=== PATIENT | male | born 1945 | race Native Hawaiian/Other Pacific Islander ===

== ENCOUNTER 2018-09-19 10:11 | Inpatient (IN) | payer BC ==
[~2018-09-19] VITALS: Ht 172.7 cm; Wt 105.0 kg
[2018-09-19] VITALS (12 sets, daily range): BP systolic 102–173; BP diastolic 56–93; TEMP 97.8–98.6; Ht 172.7 cm; Wt 105.0 kg
[~2018-09-19 10:11] MED LIST: ALLO300T23 PO; AMIT25TA22 PO; ASA LOW DOSE81 MG PO; CARV3.12 PO; CLON0.5T36 PO; CLOP75TA2 PO; COZAAR25 MG PO; ENAL10TA PO; HYDR5TAB9 PO; NITROSTAT0.4 MG SL; OMEP40CA PO; ROSU10TA PO; TAMS0.4C PO; ZOFRAN8 MG PO
[2018-09-19 11:11] LABS: PLATELET COUNT 163 K/uL (142-355)
[2018-09-19 11:19] LABS: POTASSIUM 3.7 mmol/L (3.6-5.2); SODIUM 148 mmol/L (136-145)
--- NOTE | 2018-09-19 16:05 | NUR ---
PT ARRIVED VIA W/C. FAMILY AT
[2018-09-19] MEDS ORDERED: DOXAZOSIN4 M1 PO (18:31)
[2018-09-19] MEDS ORDERED: GABA300C2 PO (18:32)
[2018-09-19] MEDS ORDERED: FURO20TA67 PO (18:33)
[2018-09-19] MEDS ORDERED: MYCOPHENOLAT500 MG PO (18:35)
[2018-09-19] MEDS ORDERED: TIZANIDINE HYDRO4 MG PO (18:35)
[2018-09-19] MEDS ORDERED: [UNRECOGNIZED DRUG - REMARK] PO (18:36)
[2018-09-19] MEDS ORDERED: CARAFATE1 GM PO (18:37)
[2018-09-19] MEDS ORDERED: MELATONIN1 M1 PO (18:38)
[2018-09-19] MEDS ORDERED: NASAL SPRAY 120.05 % NAS (18:40)
[2018-09-19] MEDS ORDERED: FLUTICASON50 MCG/ACT NAS (18:41)
[2018-09-19] MEDS ORDERED: VITAMIN C TR1000 MG PO (18:45)
[2018-09-19] MEDS ORDERED: [UNRECOGNIZED DRUG - OTHER] PO (18:46)
[2018-09-19] MEDS ORDERED: [UNRECOGNIZED DRUG - OTHER] PO (18:48)
[2018-09-19] MEDS ORDERED: DIPHENATOL2.5 MG PO (18:57)
[2018-09-20] VITALS (9 sets, daily range): BP systolic 117–141; BP diastolic 42–75; TEMP 98.2–99.1
--- NOTE | 2018-09-20 04:09 | NUR ---
Patient is presently on a CLD. Admitted with syncopal episode, dehydration, intractabe n/v and pain. 68" and IBW= 154+/-10% and is at 219.2 and is 142% BW and BMI at 33.29 and is CLass I Obesity. Kcal for IBW 2100, Protein 70-80 grams and Fluids for weight 3000+++ d/t dx. Recommendations: 1- Advance JORGE. Suggest NCS high fiber, needs to decrease weight for health. 2- Increase Fluids as tolerated.
[2018-09-20 05:32] LABS: PLATELET COUNT 130 K/uL (142-355)
[2018-09-20 05:33] LABS: POTASSIUM 3.8 mmol/L (3.6-5.2)
[2018-09-21 00:23] VITALS: BP 118/58; TEMP 98
--- NOTE | 2018-09-21 02:24 | NUR ---
09/21/18 027 RESTING WITH EYES CLOSED RESP EVEN NONLABORED VISITOR PRESENT IN ROOM.CC
[2018-09-21 03:58] VITALS: BP 118/53; TEMP 97.5
[2018-09-21 05:56] LABS: PLATELET COUNT 131 K/uL (142-355)
[2018-09-21 06:12] LABS: POTASSIUM 4.5 mmol/L (3.6-5.2)
[2018-09-21 08:18] VITALS: BP 143/59; TEMP 98.1
[2018-09-21 12:12] VITALS: BP 144/59; TEMP 98
[2018-09-21] MEDS ORDERED: TRAMADOL HYDROC50 MG PO (14:29)
[2018-09-21 16:05] VITALS: BP 151/65; TEMP 98
[2018-09-21 20:00] VITALS: BP 148/57; TEMP 98.3
--- NOTE | 2018-09-21 20:36 | NUR ---
DRESSING CHANGED TO LEFT ARM. OPEN SKIN TEAR WAS COVERED WITH NEOSPORIN. SKIN TEAR WAS THEN COVERED WITH TELFA DRESSING AND WRAPPED IN MADHAV WRAP.
[2018-09-22] VITALS: BP 121/52; TEMP 98.9
[2018-09-22 04:00] VITALS: BP 118/70; TEMP 98.4
[2018-09-22 05:55] LABS: PLATELET COUNT 151 K/uL (142-355)
[2018-09-22 06:15] LABS: POTASSIUM 4.3 mmol/L (3.6-5.2)
[2018-09-22 08:25] VITALS: BP 123/54; TEMP 98.2
--- NOTE | 2018-09-22 10:28 | NUR ---
0920 NEW ORDERS GIVEN PER JENAE TO DC DISCHARGE ON PT AT THIS TIME. PT AND FAMILY AWARE
[2018-09-22 12:06] VITALS: BP 144/70; TEMP 98.2
--- NOTE | 2018-09-22 14:40 | NUR ---
1435 PT LEFT WITH FAMILY VIA WC. NO ACUTE DISTRESS NOTED
== END 2018-09-22 14:25 | disposition home or self-care (01) | DRG 605 ==
LOC: ED 10:11 → MED/SURG 15:35
PROVIDERS: ADMIT Family Medicine
DX: S00.83XA Contusion of other part of head, initial encounter (principal); R55 Syncope and collapse; S40.022A Contusion of left upper arm, initial encounter; R51 Headache; M54.5 Low back pain; E86.0 Dehydration; K52.89 Other specified noninfective gastroenteritis and colitis; E86.1 Hypovolemia; I10 Essential (primary) hypertension; M10.9 Gout, unspecified; E78.49 Other hyperlipidemia; I25.2 Old myocardial infarction; I25.10 Atherosclerotic heart disease of native coronary artery without angina pectoris; W18.39XA Other fall on same level, initial encounter; Y92.89 Other specified places as the place of occurrence of the external cause
CPT/HCPCS: 36415; 80053; 81000; 82550; 84484; 85027; 87502; 90471; 90715; 93005; 93306; 96365; 96366; 96372; 96374; 96375; 99284; J1650; J2175; J2405; J2550; J3490

== ENCOUNTER 2019-04-25 09:28 | Outpatient (CLI) | payer BC ==
[~2019-04-25 09:28] MED LIST changes: +CARAFATE1 GM PO; +DIPHENATOL2.5 MG PO; +DOXAZOSIN4 M1 PO; +FLUTICASON50 MCG/ACT NAS; +FURO20TA67 PO; +GABA300C2 PO; +MELATONIN1 M1 PO; +MYCOPHENOLAT500 MG PO; +NASAL SPRAY 120.05 % NAS; +TIZANIDINE HYDRO4 MG PO; +TRAMADOL HYDROC50 MG PO; +VITAMIN C TR1000 MG PO; +[UNRECOGNIZED DRUG - OTHER] PO; +[UNRECOGNIZED DRUG - OTHER] PO; +[UNRECOGNIZED DRUG - REMARK] PO
== END 2019-04-25 22:51 | disposition home or self-care (01) ==
LOC: RAD 09:28
DX: M25.561 Pain in right knee (principal)

== ENCOUNTER 2020-09-10 08:22 | Outpatient (CLI) | payer BC ==
[2020-09-10 08:48] LABS: PLATELET COUNT 174 K/uL (142-355)
== END 2020-09-10 23:14 | disposition home or self-care (01) ==
LOC: LABW 08:22
PROVIDERS: ATTEND Internal Medicine Nephrology
DX: D64.89 Other specified anemias (principal); E78.00 Pure hypercholesterolemia, unspecified; E87.5 Hyperkalemia; I73.89 Other specified peripheral vascular diseases; M12.9 Arthropathy, unspecified; N03.8 Chronic nephritic syndrome with other morphologic changes; N18.30 Chronic kidney disease, stage 3 unspecified; M10.9 Gout, unspecified; R60.0 Localized edema; R79.89 Other specified abnormal findings of blood chemistry
CPT/HCPCS: 36415; 80053; 82570; 82728; 83540; 83550; 84155; 85027

== ENCOUNTER 2020-12-11 08:21 | Outpatient (CLI) | payer BC ==
[2020-12-11 08:48] LABS: PLATELET COUNT 126 K/uL (142-355)
[2020-12-11 08:56] LABS: POTASSIUM 5.9 mmol/L (3.6-5.2)
== END 2020-12-11 21:15 | disposition home or self-care (01) ==
LOC: LAB 08:21
PROVIDERS: ATTEND Internal Medicine Nephrology
DX: D64.89 Other specified anemias (principal); E78.00 Pure hypercholesterolemia, unspecified; E87.5 Hyperkalemia; I73.9 Peripheral vascular disease, unspecified; K26.3 Acute duodenal ulcer without hemorrhage or perforation; M12.89 Other specific arthropathies, not elsewhere classified, multiple sites; N05.2 Unspecified nephritic syndrome with diffuse membranous glomerulonephritis; N18.30 Chronic kidney disease, stage 3 unspecified; M10.9 Gout, unspecified; R60.0 Localized edema; R79.89 Other specified abnormal findings of blood chemistry
CPT/HCPCS: 36415; 80053; 82310; 82570; 83970; 84100; 84155; 85027

== ENCOUNTER 2020-12-30 12:34 | Outpatient (CLI) | payer BC | END 2020-12-30 23:42 | disposition home or self-care (01) | LOC: RAD 12:34 | PROVIDERS: ATTEND Physician Assistant | DX: M25.552 Pain in left hip (principal) ==

== ENCOUNTER 2021-02-05 08:15 | Outpatient (CLI) | payer BC ==
[2021-02-05 09:03] LABS: POTASSIUM 4.2 mmol/L (3.6-5.2)
[2021-02-05 09:13] LABS: PLATELET COUNT 125 K/uL (142-355)
== END 2021-02-05 22:17 | disposition home or self-care (01) ==
LOC: LABW 08:15
PROVIDERS: ATTEND Internal Medicine Nephrology
DX: D64.89 Other specified anemias (principal); E78.00 Pure hypercholesterolemia, unspecified; E87.5 Hyperkalemia; I73.9 Peripheral vascular disease, unspecified; M12.89 Other specific arthropathies, not elsewhere classified, multiple sites; M10.9 Gout, unspecified; N18.4 Chronic kidney disease, stage 4 (severe); R60.0 Localized edema; R79.89 Other specified abnormal findings of blood chemistry; I12.9 Hypertensive chronic kidney disease with stage 1 through stage 4 chronic kidney disease, or unspecified chronic kidney disease
CPT/HCPCS: 36415; 80053; 82306; 83970; 84100; 85027

== ENCOUNTER 2021-02-18 08:47 | Outpatient (CLI) | payer BC | END 2021-02-18 17:00 | disposition home or self-care (01) | LOC: LABW 08:47 | PROVIDERS: ATTEND Ophthalmology | DX: Z01.818 Encounter for other preprocedural examination (principal) | CPT/HCPCS: 36415; 84132 ==

== ENCOUNTER 2021-05-27 08:19 | Outpatient (CLI) | payer BC | END 2021-05-27 19:24 | disposition home or self-care (01) | LOC: LABW 08:19 | PROVIDERS: ATTEND Ophthalmology | DX: Z01.818 Encounter for other preprocedural examination (principal) | CPT/HCPCS: 36415; 84132 ==

== ENCOUNTER 2021-06-04 09:02 | Outpatient (CLI) | payer BC ==
[2021-06-04 10:06] LABS: PLATELET COUNT 180 K/uL (142-355)
[2021-06-04 10:26] LABS: POTASSIUM 4.3 mmol/L (3.6-5.2)
== END 2021-06-04 20:04 | disposition home or self-care (01) ==
LOC: LABW 09:02
PROVIDERS: ATTEND Internal Medicine Nephrology
DX: D64.89 Other specified anemias (principal); E78.00 Pure hypercholesterolemia, unspecified; E87.5 Hyperkalemia; I73.9 Peripheral vascular disease, unspecified; K26.3 Acute duodenal ulcer without hemorrhage or perforation; M12.88 Other specific arthropathies, not elsewhere classified, other specified site; M10.9 Gout, unspecified; N18.4 Chronic kidney disease, stage 4 (severe); R60.0 Localized edema; R79.89 Other specified abnormal findings of blood chemistry; R80.8 Other proteinuria; I12.9 Hypertensive chronic kidney disease with stage 1 through stage 4 chronic kidney disease, or unspecified chronic kidney disease
CPT/HCPCS: 36415; 80053; 80061; 81000; 82306; 82570; 84100; 84155; 84550; 85027

== ENCOUNTER 2021-09-12 11:30 | Outpatient (CLI) | payer BC, OTHER ==
[2021-09-12 12:11] LABS: PLATELET COUNT 101 K/uL (142-355)
== END 2021-09-12 20:32 | disposition home or self-care (01) ==
LOC: LABW 11:30
PROVIDERS: ATTEND Nurse Practitioner
DX: U07.1 COVID-19 (principal)
CPT/HCPCS: 36415; 80053; 85027; 85379; 86140

== ENCOUNTER 2022-01-04 23:01 | Observation (INO) | payer BC ==
[~2022-01-04] VITALS: Ht 172.7 cm; Wt 103.0 kg
[2022-01-04 23:09] VITALS: BP 158/56; TEMP 100.4
[2022-01-04 23:30] VITALS: BP 146/57
[2022-01-04 23:30] LABS: PLATELET COUNT 150 K/uL (142-355)
[2022-01-04 23:38] LABS: POTASSIUM 4.6 mmol/L (3.6-5.2)
[2022-01-04 23:41] LABS: PARTIAL THROMBOPLASTIN TIME 22.5 SECONDS (24.5-33.6)
[2022-01-05 00:10] VITALS: BP 152/68
[2022-01-05 00:30] VITALS: BP 149/68
[2022-01-05 01:30] VITALS: BP 144/63
[2022-01-05 02:00] VITALS: BP 150/69
--- NOTE | 2022-01-05 02:20 | NUR ---
PATIENT ADMITTED TO ROOM# 1108 VIA STRETCHER FROM THE ER. PATIENT IS ALERT AND ORIENTED AND IN NO ACUTE DISTRESS AT THIS TIME. PATIENT AND DAUGHTER ORIENTED TO ROOM AND CALL SYSTEM AND VERBALIZES UNDERSTANDING OF ALL INFORMATION GIVEN AND DENIES ANY QUESTIONS, COMPLAINTS OR REQUESTS AT THIS TIME. CALL LIGHT WITHIN REACH. WILL CONTINUE TO MONITOR.
[2022-01-05 05:39] VITALS: BP 134/50; TEMP 100.8; Ht 172.7 cm; Wt 103.0 kg
[2022-01-05 08:20] VITALS: BP 145/76; TEMP 98.8
--- NOTE | 2022-01-05 09:00 | NUR ---
ROUNDS WITH MD, REQUEST TO OBTAIN ORTHOSTATIC BP. SITTIN/58, STANDING 152/66. 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 HAS AN APPOINTMENT ON FEBRUARY 04. CLIENT'S DAUGHTER AT BEDSIDE. CLIENT AGREED WITH DR HEARN'S RECOMMENDATION FOR HOME HEALTH SERVICES. CLIENT AWAITING DISCHARGE. DAUGHTER AT BEDSIDE.
[2022-01-05] MEDS ORDERED: FINASTERIDE5 MG PO (09:54)
[2022-01-05] MEDS ORDERED: GRALISE600 MG PO (09:58)
--- NOTE | 2022-01-05 09:58 | NUR ---
ordered home health for [facility] and medication management. Banking Attorney spoke with patient and his daughter and they would like [facility], because they took care of his before she passed and they were real pleased. Banking Attorney spoke with Lolita at [facility] and referral was sent.
[2022-01-05] MEDS ORDERED: PRED20TA27 PO (10:02)
[2022-01-05] MEDS ORDERED: CARDURA8 MG PO (10:03)
[2022-01-05] MEDS ORDERED: MONTELUKAST SODI5 MG PO (10:07)
[2022-01-05] MEDS ORDERED: SPS15 GM/60 M PO (10:09)
[2022-01-05] MEDS ORDERED: SODI650T PO (10:11)
[2022-01-05] MEDS ORDERED: OLMESARTAN MEDO40 MG PO (10:14)
[2022-01-05] MEDS ORDERED: IPRATROPIUM/ NAS (10:20)
[2022-01-05] MEDS ORDERED: B-12 DOTS500 MCG PO (10:22)
[2022-01-05] MEDS ORDERED: LATANOPROST0.005 % OPTH (10:24)
[2022-01-05] MEDS ORDERED: MIRALAX17 GM/SCOO PO (10:25)
[2022-01-05] MEDS ORDERED: ROPINIROLE0.25 MG PO (10:25)
[2022-01-05] MEDS ORDERED: QUNOL COQ10/UB100 MG PO (10:26)
--- NOTE | 2022-01-05 11:35 | NUR ---
PROVIDED DISCHARGE INSTRUCTION TO PATIENT AND DAUGHTER, ALLOWED TIME FOR QUESTIONS. CLIENT VERBALIZED UNDERSTANDING. D/C IV ACCESS, PT TOLERATED PROCEDURE. RETURNED TELE UNIT. CLIENT DISCHARGED FROM UNIT VIA WHEELCHAIR.
== END 2022-01-05 11:35 | disposition home health service (06) ==
LOC: ED 23:01 → MED/SURG 01-05 01:00 → UNDODEPER 01-05 09:48 → MED/SURG 01-05 11:35
PROVIDERS: Hospitalist; ADMIT Internal Medicine; ATTEND Internal Medicine
DX: R53.1 Weakness (principal); E86.0 Dehydration; I25.10 Atherosclerotic heart disease of native coronary artery without angina pectoris; N40.0 Benign prostatic hyperplasia without lower urinary tract symptoms; I13.0 Hypertensive heart and chronic kidney disease with heart failure and stage 1 through stage 4 chronic kidney disease, or unspecified chronic kidney disease; N18.4 Chronic kidney disease, stage 4 (severe); I50.9 Heart failure, unspecified
CPT/HCPCS: 80053; 80320; 81000; 82550; 83605; 83690; 83880; 84484; 85027; 85610; 85730; 87040; 87635; 93005; 96360; 96361; 96365; 96367; 96372; 96375; 99220; 99284; G0378; J1650; J1956; J3370; J3490; U0003

== ENCOUNTER 2022-02-25 08:43 | Outpatient (CLI) | payer BC ==
[~2022-02-25 08:43] MED LIST changes: +B-12 DOTS500 MCG PO; +CARDURA8 MG PO; +FINASTERIDE5 MG PO; +GRALISE600 MG PO; +IPRATROPIUM/ NAS; +LATANOPROST0.005 % OPTH; +MIRALAX17 GM/SCOO PO; +MONTELUKAST SODI5 MG PO; +OLMESARTAN MEDO40 MG PO; +PRED20TA27 PO; +QUNOL COQ10/UB100 MG PO; +ROPINIROLE0.25 MG PO; +SODI650T PO; +SPS15 GM/60 M PO
== END 2022-02-25 18:56 | disposition home or self-care (01) ==
LOC: US 08:43
PROVIDERS: ATTEND Internal Medicine Gastroenterology
DX: R11.0 Nausea (principal); R10.13 Epigastric pain

== ENCOUNTER 2022-03-16 08:03 | Outpatient (CLI) | payer BC ==
[2022-03-16 08:26] LABS: PLATELET COUNT 172 K/uL (142-355)
[2022-03-16 08:33] LABS: POTASSIUM 4.2 mmol/L (3.6-5.2)
== END 2022-03-16 19:07 | disposition home or self-care (01) ==
LOC: LABW 08:03
PROVIDERS: ATTEND Internal Medicine Nephrology
DX: R94.4 Abnormal results of kidney function studies (principal)
CPT/HCPCS: 36415; 80069; 81002; 82570; 83970; 84156; 84165; 84166; 85027

== ENCOUNTER 2022-05-13 09:30 | Outpatient (CLI) | payer BC ==
[2022-05-13 09:57] LABS: PLATELET COUNT 157 K/uL (142-355)
[2022-05-13 10:12] LABS: POTASSIUM 4.2 mmol/L (3.6-5.2)
== END 2022-05-13 19:19 | disposition home or self-care (01) ==
LOC: LABW 09:30
PROVIDERS: ATTEND Internal Medicine Nephrology
DX: N18.32 Chronic kidney disease, stage 3b (principal)
CPT/HCPCS: 36415; 80069; 82570; 83970; 84156; 85027

== ENCOUNTER 2022-06-10 08:48 | Outpatient (CLI) | payer BC | END 2022-06-10 19:28 | disposition home or self-care (01) | LOC: LABW 08:48 | PROVIDERS: ATTEND Internal Medicine Nephrology | DX: N18.32 Chronic kidney disease, stage 3b (principal) | CPT/HCPCS: 36415; 80048 ==

== ENCOUNTER 2022-06-27 13:31 | Inpatient (IN) | payer BC ==
[~2022-06-27] VITALS: Ht 172.7 cm; Wt 102.6 kg
[2022-06-27 13:33] VITALS: BP 121/47; TEMP 102.3
[2022-06-27 14:53] LABS: PLATELET COUNT 122 K/uL (142-355)
[2022-06-27 15:06] LABS: POTASSIUM 4.8 mmol/L (3.6-5.2)
[2022-06-27 15:24] VITALS: BP 103/48; TEMP 99
[2022-06-27 16:23] VITALS: BP 111/51
[2022-06-27 18:42] VITALS: BP 123/55
[2022-06-27 20:34] VITALS: BP 141/59; TEMP 98.7; Ht 172.7 cm; Wt 102.6 kg
[2022-06-27] MEDS ORDERED: FURO40TA93 PO (21:27)
[2022-06-27] MEDS ORDERED: TIZANIDINE HYDRO4 M1 PO (21:29)
[2022-06-28] VITALS (7 sets, daily range): BP systolic 120–199; BP diastolic 59–88; TEMP 97.6–99.1
[2022-06-29] VITALS (8 sets, daily range): BP systolic 155–181; BP diastolic 64–78; TEMP 98.1–99.4
[2022-06-29 04:08] LABS: PLATELET COUNT 134 K/uL (142-355)
[2022-06-29] MEDS ORDERED: FERROUS SULF325 MG PO (17:18)
[2022-06-30] VITALS (7 sets, daily range): BP systolic 98–170; BP diastolic 70–86; TEMP 97.6–98.5
[2022-06-30 08:53] LABS: PLATELET COUNT 183 K/uL (142-355)
[2022-06-30 09:05] LABS: POTASSIUM 4.8 mmol/L (3.6-5.2)
== END 2022-06-30 09:37 | disposition home or self-care (01) | DRG 540 ==
LOC: ED 13:31 → MED/SURG 18:49 → ED 18:49 → MED/SURG 18:50
PROVIDERS: ADMIT Family Medicine; ATTEND Internal Medicine
PROC: 30233N1 Transfusion of Nonautologous Red Blood Cells into Peripheral Vein, Percutaneous Approach (ICD-10-PCS; principal; 2022-06-29)
PROC: 30233N1 Transfusion of Nonautologous Red Blood Cells into Peripheral Vein, Percutaneous Approach (ICD-10-PCS; 2022-06-30)
DX: M86.8X7 Other osteomyelitis, ankle and foot (principal); I13.0 Hypertensive heart and chronic kidney disease with heart failure and stage 1 through stage 4 chronic kidney disease, or unspecified chronic kidney disease; L03.115 Cellulitis of right lower limb; N18.4 Chronic kidney disease, stage 4 (severe); R50.9 Fever, unspecified; N40.0 Benign prostatic hyperplasia without lower urinary tract symptoms; K21.9 Gastro-esophageal reflux disease without esophagitis; M10.9 Gout, unspecified; R11.2 Nausea with vomiting, unspecified; I25.2 Old myocardial infarction; L97.519 Non-pressure chronic ulcer of other part of right foot with unspecified severity; I50.9 Heart failure, unspecified
CPT/HCPCS: 36415; 80048; 80053; 80202; 82150; 82550; 82607; 82728; 82746; 83540; 83605; 83690; 83735; 83880; 84484; 85027; 86850; 86900; 86901; 86922; 87040; 87502; 87635; 93005; 96360; 96365; 96366; 96367; 96374; 96375; 99284; J0360; J1940; J2543; J3370; J3490; P9016; U0003

== ENCOUNTER 2022-12-21 16:37 | Inpatient (IN) | payer BC ==
[~2022-12-21 16:37] MED LIST changes: +FERROUS SULF325 MG PO; +FURO40TA93 PO; +TIZANIDINE HYDRO4 M1 PO
[2022-12-29 13:11] LABS: PLATELET COUNT 257 K/uL (142-355)
[2022-12-29 13:53] LABS: POTASSIUM 4.2 mmol/L (3.6-5.2)
[2023-01-14 11:03] LABS: PLATELET COUNT 408 K/uL (142-355)
== END 2023-01-21 11:58 | disposition still patient (30) ==
LOC: PAVC 16:37
PROVIDERS: ADMIT Family Medicine; ATTEND Family Medicine
CPT/HCPCS: 36415; 80053; 82607; 82728; 83540; 83550; 83605; 83735; 83880; 84100; 84134; 84443; 84550; 85027; 86140; 87040; 87070; 87077; 87081; 87186; 87205; 87324; 87449

== ENCOUNTER 2022-12-28 14:31 | Emergency (ER) | payer BC ==
[~2022-12-28] VITALS: Ht 172.7 cm; Wt 90.7 kg
[2022-12-28 14:31] VITALS: BP 139/73; TEMP 99.2
[2022-12-28 15:54] LABS: POTASSIUM 4.6 mmol/L (3.6-5.2)
[2022-12-28 16:01] LABS: PLATELET COUNT 257 K/uL (142-355)
== END 2022-12-28 18:57 | disposition home or self-care (01) ==
LOC: ED 14:31
PROVIDERS: Emergency Medicine Emergency Medical Services
DX: R53.1 Weakness (principal); L02.214 Cutaneous abscess of groin
CPT/HCPCS: 36415; 80053; 81002; 83880; 84484; 85027; 93005; 96360; 99284

== ENCOUNTER 2023-02-15 04:47 | Outpatient (CLI) | payer BC ==
[2023-02-15 05:42] LABS: POTASSIUM 5.8 mmol/L (3.6-5.2)
== END 2023-02-15 19:18 | disposition home or self-care (01) ==
LOC: LAB 04:47
PROVIDERS: ATTEND Family Medicine
DX: R79.89 Other specified abnormal findings of blood chemistry (principal)
CPT/HCPCS: 36415; 80048

== ENCOUNTER 2023-02-21 21:41 | Emergency (ER) | payer BC ==
[~2023-02-21] VITALS: Ht 172.7 cm; Wt 80.3 kg
[2023-02-21 21:41] VITALS: TEMP 98
[2023-02-21 22:30] LABS: PLATELET COUNT 262 K/uL (142-355)
[2023-02-21 22:42] LABS: POTASSIUM 5.9 mmol/L (3.6-5.2)
[2023-02-22 01:29] VITALS: BP 137/75
[2023-02-22] MEDS ORDERED: FENOFIBRATE54 MG PO (21:59)
[2023-02-22] MEDS ORDERED: IRON325 MG PO (22:05)
[2023-02-22] MEDS ORDERED: MONT10TA PO (22:08)
[2023-02-22] MEDS ORDERED: [UNRECOGNIZED DRUG - CODE] PO (22:09)
[2023-02-22] MEDS ORDERED: MULTIVITAMIN1 TA1 PO (22:12)
[2023-02-22] MEDS ORDERED: PRED10TA27 PO (22:13)
[2023-02-22] MEDS ORDERED: SCOP1.5D TD (22:18)
[2023-02-22] MEDS ORDERED: ZINC220 MG PO (22:19)
[2023-02-22] MEDS ORDERED: CETI10TA PO (22:20)
[2023-02-22] MEDS ORDERED: CVS STOOL SOFT100 MG PO (22:21)
[2023-02-22] MEDS ORDERED: LANS30CA PO (22:22)
[2023-02-22] MEDS ORDERED: OXYC5TAB24 PO (22:25)
[2023-02-22] MEDS ORDERED: NASACORT A55 MCG/ACT NAS (22:27)
== END 2023-02-22 01:29 | disposition short-term general hospital (02) ==
LOC: ED 21:41
PROVIDERS: Family Medicine
DX: R41.0 Disorientation, unspecified (principal); Z71.1 Person with feared health complaint in whom no diagnosis is made
CPT/HCPCS: 36415; 80053; 81002; 85027; 99283

== ENCOUNTER 2023-02-22 09:25 | Observation (INO) | payer BC ==
[~2023-02-22] VITALS: Ht 170.2 cm; Wt 82.2 kg
[2023-02-22 18:34] VITALS: BP 155/59; TEMP 98.4; Ht 170.2 cm; Wt 82.2 kg
[2023-02-22 20:00] VITALS: BP 144/61; TEMP 99
[2023-02-22] MEDS ORDERED: FENOFIBRATE54 MG PO (21:59)
[2023-02-22] MEDS ORDERED: IRON325 MG PO (22:05)
[2023-02-22] MEDS ORDERED: MONT10TA PO (22:08)
[2023-02-22] MEDS ORDERED: [UNRECOGNIZED DRUG - CODE] PO (22:09)
[2023-02-22] MEDS ORDERED: MULTIVITAMIN1 TA1 PO (22:12)
[2023-02-22] MEDS ORDERED: PRED10TA27 PO (22:13)
[2023-02-22] MEDS ORDERED: SCOP1.5D TD (22:18)
[2023-02-22] MEDS ORDERED: ZINC220 MG PO (22:19)
[2023-02-22] MEDS ORDERED: CETI10TA PO (22:20)
[2023-02-22] MEDS ORDERED: CVS STOOL SOFT100 MG PO (22:21)
[2023-02-22] MEDS ORDERED: LANS30CA PO (22:22)
[2023-02-22] MEDS ORDERED: OXYC5TAB24 PO (22:25)
[2023-02-22] MEDS ORDERED: NASACORT A55 MCG/ACT NAS (22:27)
[2023-02-22 23:36] VITALS: BP 126/68; TEMP 98.5
[2023-02-23 03:59] VITALS: BP 165/56; TEMP 98.1
[2023-02-23 06:18] LABS: PLATELET COUNT 225 K/uL (142-355)
[2023-02-23 08:00] VITALS: BP 147/54; TEMP 98.2
== END 2023-02-23 11:16 ==
LOC: LAB 09:25 → MED/SURG 15:11
PROVIDERS: ADMIT Family Medicine; ATTEND Internal Medicine
DX: E87.5 Hyperkalemia (principal); N18.4 Chronic kidney disease, stage 4 (severe)
CPT/HCPCS: 36415; 80048; 82948; 83735; 84100; 85027; 93005; 96360; 99221; G0378

== ENCOUNTER 2023-02-25 07:45 | Outpatient (CLI) | payer BC ==
[~2023-02-25 07:45] MED LIST changes: +CETI10TA PO; +CVS STOOL SOFT100 MG PO; +FENOFIBRATE54 MG PO; +IRON325 MG PO; +LANS30CA PO; +MONT10TA PO; +MULTIVITAMIN1 TA1 PO; +NASACORT A55 MCG/ACT NAS; +OXYC5TAB24 PO; +PRED10TA27 PO; +SCOP1.5D TD; +ZINC220 MG PO; +[UNRECOGNIZED DRUG - CODE] PO
[2023-02-25 08:07] LABS: POTASSIUM 5.5 mmol/L (3.6-5.2)
== END 2023-02-25 22:10 | disposition home or self-care (01) ==
LOC: LAB 07:45
PROVIDERS: ATTEND Family Medicine
DX: R79.89 Other specified abnormal findings of blood chemistry (principal)
CPT/HCPCS: 36415; 80048

== ENCOUNTER 2023-03-05 04:57 | Outpatient (CLI) | payer BC ==
[2023-03-05 06:17] LABS: POTASSIUM 4.8 mmol/L (3.6-5.2)
== END 2023-03-05 18:56 | disposition home or self-care (01) ==
LOC: LAB 04:57
PROVIDERS: ATTEND Family Medicine
DX: E87.5 Hyperkalemia (principal)
CPT/HCPCS: 36415; 80053

== ENCOUNTER 2023-03-17 09:20 | Outpatient (CLI) | payer BC ==
[~2023-03-17] VITALS: Ht 172.7 cm; Wt 86.6 kg
[~2023-03-17 09:20] MED LIST changes: +ALUM-67 PO; -ASA LOW DOSE81 MG PO; +ASPIRIN LOW81 MG PO; +BANOPHEN25 M1 PO; +BIOFREEZE ROLL ON TOP; +GERI-TUSSI100 MG/51 PO; +JEVITY 1.5 PEG; +LOKELMA10 GM PO; +MILK OF MA400 MG/5 M PO; +ONDA4TAB3 PO; +OXYGEN; +TYLENOL325 MG PO
[2023-03-17 09:25] VITALS: BP 154/58; TEMP 98.5
[2023-03-17 20:58] VITALS: BP 189/73; TEMP 98.7
[2023-03-17 21:35] VITALS: BP 183/74; TEMP 98.4
== END 2023-03-17 21:01 | disposition home or self-care (01) ==
LOC: INF 09:20
PROVIDERS: ATTEND Family Medicine
DX: N39.0 Urinary tract infection, site not specified (principal)
CPT/HCPCS: 96365; J2185

== ENCOUNTER 2023-03-18 08:42 | Outpatient (CLI) | payer BC ==
[~2023-03-18] VITALS: Ht 165.1 cm; Wt 81.6 kg
[2023-03-18 08:45] VITALS: BP 141/63; TEMP 98.8
[2023-03-18 22:10] VITALS: BP 182/77; TEMP 99.2
[2023-03-18 22:35] VITALS: BP 188/85; TEMP 99.3
== END 2023-03-18 23:00 | disposition home or self-care (01) ==
LOC: INF 08:42
PROVIDERS: ATTEND Family Medicine
DX: N39.0 Urinary tract infection, site not specified (principal)
CPT/HCPCS: 96365; J2185

== ENCOUNTER 2023-03-19 10:00 | Outpatient (CLI) | payer BC ==
[~2023-03-19] VITALS: Ht 165.1 cm; Wt 63.5 kg
[2023-03-19 10:00] VITALS: BP 145/63; TEMP 99.3
== END 2023-03-19 23:18 | disposition home or self-care (01) ==
LOC: INF 10:00
PROVIDERS: ATTEND Family Medicine
DX: N39.0 Urinary tract infection, site not specified (principal)
CPT/HCPCS: 96365; J2185

== ENCOUNTER 2023-03-20 10:08 | Outpatient (CLI) | payer BC ==
[~2023-03-20] VITALS: Ht 30.5 cm; Wt 0.5 kg
[2023-03-20 10:35] VITALS: BP 153/81; TEMP 98.6
== END 2023-03-20 23:11 | disposition home or self-care (01) ==
LOC: INF 10:08
PROVIDERS: ATTEND Family Medicine
DX: N39.0 Urinary tract infection, site not specified (principal)
CPT/HCPCS: 96365; J2185

== ENCOUNTER 2023-03-24 07:28 | Outpatient (CLI) | payer BC ==
[2023-03-24 08:05] LABS: POTASSIUM 4.6 mmol/L (3.6-5.2)
[2023-03-24 11:53] LABS: PLATELET COUNT 344 K/uL (142-355)
== END 2023-03-24 19:03 | disposition home or self-care (01) ==
LOC: LAB 07:28
PROVIDERS: ATTEND Family Medicine
DX: I12.9 Hypertensive chronic kidney disease with stage 1 through stage 4 chronic kidney disease, or unspecified chronic kidney disease (principal); N18.4 Chronic kidney disease, stage 4 (severe)
CPT/HCPCS: 80053; 82570; 84100; 84156; 85027

== ENCOUNTER 2023-04-07 21:48 | Inpatient (IN) | payer BC ==
[~2023-04-07] VITALS: Ht 172.7 cm; Wt 82.8 kg
[2023-04-07 22:20] LABS: PLATELET COUNT 221 K/uL (142-355)
[2023-04-07 22:27] VITALS: BP 107/65; TEMP 97.7
[2023-04-07 22:33] LABS: POTASSIUM 5.7 mmol/L (3.6-5.2)
[2023-04-07 23:00] VITALS: BP 108/63; BP 157/61
[2023-04-08] VITALS (8 sets, daily range): BP systolic 109–179; BP diastolic 64–96; TEMP 97.3–98.4; Ht 172.7 cm; Wt 82.8 kg
[2023-04-08] MEDS ORDERED: MIRALAX17 GM PO (08:15)
[2023-04-09] VITALS: BP 180/61; TEMP 97.5
[2023-04-09 04:00] VITALS: BP 149/86; TEMP 97.6
[2023-04-09 06:36] LABS: PLATELET COUNT 207 K/uL (142-355)
[2023-04-09 06:46] LABS: POTASSIUM 5.3 mmol/L (3.6-5.2)
[2023-04-09 08:00] VITALS: BP 186/75; TEMP 98.5
[2023-04-09 12:00] VITALS: BP 190/76; TEMP 98.4
[2023-04-09 16:00] VITALS: BP 145/71; TEMP 96.8
[2023-04-09 19:50] VITALS: BP 183/84; TEMP 98
[2023-04-10] VITALS: BP 136/64; BP 166/82; TEMP 98; TEMP 98.7
[2023-04-10 04:00] VITALS: BP 148/95; TEMP 98
[2023-04-10 04:58] LABS: PLATELET COUNT 200 K/uL (142-355)
[2023-04-10 05:13] LABS: POTASSIUM 5.3 mmol/L (3.6-5.2)
[2023-04-10 08:00] VITALS: BP 154/96; TEMP 98.2
[2023-04-10 12:22] VITALS: BP 148/60; TEMP 97.6
[2023-04-10 16:00] VITALS: BP 168/71; TEMP 98.7
[2023-04-10 20:00] VITALS: BP 133/62; TEMP 98.6
[2023-04-11] VITALS: BP 130/64; TEMP 98.7
[2023-04-11 04:00] VITALS: BP 132/68; TEMP 99.1
[2023-04-11 05:30] LABS: PLATELET COUNT 183 K/uL (142-355)
[2023-04-11 05:35] LABS: POTASSIUM 5.1 mmol/L (3.6-5.2)
[2023-04-11 08:00] VITALS: BP 184/81; TEMP 98
[2023-04-11 12:00] VITALS: BP 164/71; TEMP 98.7
[2023-04-11 19:55] VITALS: BP 163/54; TEMP 98.1
[2023-04-11 23:31] VITALS: BP 169/55; TEMP 99.6
[2023-04-12 04:00] VITALS: BP 175/58; TEMP 98.9
[2023-04-12 04:18] LABS: PLATELET COUNT 194 K/uL (142-355)
[2023-04-12 04:24] LABS: POTASSIUM 4.9 mmol/L (3.6-5.2)
[2023-04-12 08:00] VITALS: BP 188/74; TEMP 98
== END 2023-04-12 10:17 | DRG 689 ==
LOC: ED 21:48 → MED/SURG 04-08 03:10
PROVIDERS: Family Medicine; ADMIT Physician Assistant; ATTEND Internal Medicine Endocrinology, Diabetes & Metabolism
DX: N30.00 Acute cystitis without hematuria (principal); G92.8 Other toxic encephalopathy; N18.4 Chronic kidney disease, stage 4 (severe); B96.4 Proteus (mirabilis) (morganii) as the cause of diseases classified elsewhere; R41.82 Altered mental status, unspecified; N40.0 Benign prostatic hyperplasia without lower urinary tract symptoms; D63.1 Anemia in chronic kidney disease; G89.4 Chronic pain syndrome; K21.9 Gastro-esophageal reflux disease without esophagitis
CPT/HCPCS: 80048; 80053; 81000; 82948; 85027; 87077; 87086; 87088; 87186; 96361; 96365; 96367; 96375; 99221; 99284; G0378; J1335; J2060; J2543

== ENCOUNTER 2023-04-19 05:20 | Outpatient (CLI) | payer BC ==
[~2023-04-19 05:20] MED LIST changes: +MIRALAX17 GM PO
[2023-04-19 05:39] LABS: PLATELET COUNT 278 K/uL (142-355)
[2023-04-19 06:00] LABS: POTASSIUM 6.1 mmol/L (3.6-5.2)
== END 2023-04-19 23:58 | disposition home or self-care (01) ==
LOC: LAB 05:20
PROVIDERS: ATTEND Family Medicine
DX: I25.10 Atherosclerotic heart disease of native coronary artery without angina pectoris (principal); R79.89 Other specified abnormal findings of blood chemistry; Z79.899 Other long term (current) drug therapy; I10 Essential (primary) hypertension
CPT/HCPCS: 36415; 80053; 83605; 83735; 83880; 84100; 84443; 84550; 85027; 86140

== ENCOUNTER 2023-04-29 07:49 | Outpatient (CLI) | payer BC | END 2023-04-29 19:24 | disposition home or self-care (01) | LOC: LAB 07:49 | PROVIDERS: ATTEND Family Medicine | DX: D64.89 Other specified anemias (principal); N17.8 Other acute kidney failure; A41.01 Sepsis due to Methicillin susceptible Staphylococcus aureus; R33.8 Other retention of urine | CPT/HCPCS: 80048 ==

== ENCOUNTER 2023-05-05 13:58 | Outpatient (CLI) | payer BC ==
[2023-05-05 14:18] LABS: POTASSIUM 4.5 mmol/L (3.6-5.2)
== END 2023-05-05 19:19 | disposition home or self-care (01) ==
LOC: LAB 13:58
PROVIDERS: ATTEND Family Medicine
DX: Z93.1 Gastrostomy status (principal)
CPT/HCPCS: 80053

== ENCOUNTER 2023-05-06 16:36 | Outpatient (CLI) | payer BC ==
[2023-05-06 21:54] LABS: POTASSIUM 4.7 mmol/L (3.6-5.2)
== END 2023-05-06 18:30 | disposition home or self-care (01) ==
LOC: LAB 16:36
PROVIDERS: ATTEND Family Medicine
DX: Z13.228 Encounter for screening for other metabolic disorders (principal); E86.0 Dehydration
CPT/HCPCS: 36415; 80053